=== PATIENT | female | born 1945 | race Caucasian/White ===

== ENCOUNTER 2019-07-24 07:51 | Day surgery (SDC) | payer OTHER ==
[~2019-07-24] VITALS: Ht 142.2 cm; Wt 96.8 kg
[~2019-07-24 07:51] MED LIST: ASCO500 PO; CALCIUM PO; DICL4100G TP; HYDR-3887 PO; LISI-662 PO; SIMV-261 PO; SODIUM CHLORIDE 0.9% 1,000 ML IV ONE; VIT PO
[2019-07-24] MEDS ORDERED: DULO30CA2 PO (08:43)
[2019-07-24] MEDS ORDERED: RANI150T7 PO (08:43)
[2019-07-24] MEDS ORDERED: LORA10TA7 PO (08:43)
[2019-07-24] MEDS ORDERED: ALEN70TA10 PO (08:43)
[2019-07-24] MEDS ORDERED: HYDR25TA PO (08:43)
[2019-07-24] MEDS ORDERED: PRED-284 PO (08:43)
[2019-07-24] MEDS ORDERED: PREG75 PO (08:43)
== END 2019-07-24 11:05 | disposition home or self-care (01) ==
LOC: SURGERY 07:51
PROVIDERS: ATTEND Internal Medicine Gastroenterology
DX: K59.00 Constipation, unspecified (principal); R10.13 Epigastric pain; D12.5 Benign neoplasm of sigmoid colon; K29.50 Unspecified chronic gastritis without bleeding; I25.10 Atherosclerotic heart disease of native coronary artery without angina pectoris; F32.9 Major depressive disorder, single episode, unspecified; I10 Essential (primary) hypertension; E78.5 Hyperlipidemia, unspecified; M19.90 Unspecified osteoarthritis, unspecified site; G89.29 Other chronic pain; E66.9 Obesity, unspecified; Z68.43 Body mass index [BMI] 50.0-59.9, adult; Z79.899 Other long term (current) drug therapy; Z88.5 Allergy status to narcotic agent
CPT/HCPCS: 45385; 43239; 88305; 88312; 88313; 93005; C1769; J7030